=== PATIENT | female | born 1980 | race Caucasian/White ===

== ENCOUNTER → 2023-11-24 | Outpatient (CLI) | payer BC | LOC: M WUC 14:26 | PROVIDERS: ATTEND Physician Assistant | DX: M45.A0 Non-radiographic axial spondyloarthritis of unspecified sites in spine (principal) ==

== ENCOUNTER → 2024-02-08 | Outpatient (CLI) | payer BC | LOC: M PLAIMG 09:07 | PROVIDERS: ATTEND Physician Assistant | DX: M54.42 Lumbago with sciatica, left side (principal); M54.41 Lumbago with sciatica, right side; G89.29 Other chronic pain; M47.816 Spondylosis without myelopathy or radiculopathy, lumbar region; M48.061 Spinal stenosis, lumbar region without neurogenic claudication ==

== ENCOUNTER → 2024-06-19 | Outpatient (REF) | payer BC ==
[2024-06-19 19:11] LABS: ALBUMIN 3.7 G/DL (3.2-5.2); ALKALINE PHOSPHATASE 65 U/L (46-116); ALT/SGPT 20 U/L (7.0-40); AST/SGOT 17 U/L (<34); BILIRUBIN,TOTAL 0.3 MG/DL (0.3-1.2); BLOOD UREA NITROGEN 18 MG/DL (9-23); CALCIUM LEVEL 9.4 MG/DL (8.5-10.1); CARBON DIOXIDE LEVEL 28 MMOL/L (20-31); CHLORIDE LEVEL 104 MMOL/L (98-107); CHOLESTEROL LEVEL 197 MG/DL (<200); CREATININE FOR GFR 0.64 MG/DL (0.55-1.30); GLOMERULAR FILTRATION RATE > 60.0 (>58); GLUCOSE, FASTING 78 MG/DL (60-100); HDL CHOLESTEROL 43.7 MG/DL (>40); LDL CHOLESTEROL 89.9 MG/DL (<100); NON-HDL-C 153.3 MG/DL; SODIUM LEVEL 137 MMOL/L (136-145); TOTAL PROTEIN 7.3 G/DL (5.7-8.2); TRIGLYCERIDES LEVEL 317 MG/DL (<150)
[2024-06-19 19:15] LABS: TOTAL 25(OH) VITAMIN D 31.5 NG/ML (20.0-100.0)
[2024-06-19 19:36] LABS: HEMOGLOBIN A1c 5.7 % (4.0-6.0)
== END ==
LOC: M LAB REF 16:38
PROVIDERS: ATTEND Physician Assistant
DX: Z11.9 Encounter for screening for infectious and parasitic diseases, unspecified (principal); E66.9 Obesity, unspecified; E55.9 Vitamin D deficiency, unspecified

== ENCOUNTER → 2024-09-17 | Outpatient (REF) | LOC: M PLAIMG 12:51 | PROVIDERS: ATTEND Internal Medicine | DX: M54.50 Low back pain, unspecified (principal); M17.12 Unilateral primary osteoarthritis, left knee ==

== ENCOUNTER → 2025-06-13 | Outpatient (REF) | payer BC ==
[2025-06-13 17:42] LABS: APPEARANCE, URINE CLEAR (CLEAR); BACTERIA, URINE AUTO NEGATIVE (NEGATIVE); BILIRUBIN, URINE AUTO NEGATIVE (NEGATIVE); BLOOD, URINE BLOOD 2+ (NEGATIVE); GLUCOSE, URINE (UA) AUTO NEGATIVE (NEGATIVE); KETONE, URINE AUTO NEGATIVE (NEGATIVE); LEUKOCYTE ESTERASE, URINE AUTO NEGATIVE (NEGATIVE); MUCUS, URINE SMALL (NEGATIVE); NITRITE, URINE AUTO NEGATIVE (NEGATIVE); PROTEIN, URINE AUTO NEGATIVE (NEGATIVE); RBC, URINE AUTO 8 /HPF (0-3); SPECIFIC GRAVITY URINE AUTO 1.021 (1.002-1.035); SQUAMOUS EPITHELIAL CELL UR AU 2 /HPF (0-6); UROBILINOGEN, URINE AUTO 0.2 mg/dL (0.0-2.0); WBC, URINE AUTO 1 /HPF (0-3)
[2025-06-13 18:04] LABS: TOTAL PROTEIN,RANDOM URINE 16.6 MG/DL (0.0-14.0)
[2025-06-13 19:11] LABS: C REACTIVE PROTEIN QUANTITATIV 1.45 MG/DL (<1.0); COMPLEMENT C4 23.5 MG/DL (12-36)
[2025-06-13 19:14] LABS: TOTAL 25(OH) VITAMIN D 26.6 NG/ML (20.0-100.0)
[2025-06-17 14:02] LABS: COMPLEMENT TOTAL (CH50) > 60 U/mL (31-60)
== END ==
LOC: M SFHCRHEU 15:57
PROVIDERS: ATTEND Internal Medicine
DX: R76.8 Other specified abnormal immunological findings in serum (principal); M06.4 Inflammatory polyarthropathy; R53.83 Other fatigue

== ENCOUNTER → 2025-06-18 | Outpatient (REF) | payer BC ==
[2025-06-20 13:47] LABS: HPV APTIMA Not Detected (Not Detected)
== END ==
LOC: M LAB REF 14:58
PROVIDERS: ATTEND Physician Assistant
DX: Z12.4 Encounter for screening for malignant neoplasm of cervix (principal)